=== PATIENT | female | born 1985 | race Hispanic/Latino ===

== ENCOUNTER → 2023-01-14 | Outpatient (CLI) | payer OTHER | LOC: US 11:32 | PROVIDERS: ATTEND Family Medicine | DX: E04.1 Nontoxic single thyroid nodule (principal) | CPT/HCPCS: 10005; 88172; 88173; 88300; 88305 ==

== ENCOUNTER 2023-04-19 08:48 | Observation (INO) | payer OTHER ==
[2023-04-15 15:28] LABS: BASOPHILS # (AUTO) 0.1 (0.0-0.1); BASOPHILS % 0.7 % (0.0-1.0); EOSINOPHILS # (AUTO) 0.4 (0.0-0.4); EOSINOPHILS % 6.3 % (0.0-6.0); HEMATOCRIT 37.5 % (34.2-44.1); HEMOGLOBIN 12.2 g/dL (12.0-16.0); LYMPHOCYTES # (AUTO) 2.3 (1.0-3.2); LYMPHOCYTES % 33.6 % (18.0-39.1); MEAN CORPUSCULAR HEMOGLOBIN 30.3 pg (28-32); MEAN CORPUSCULAR HGB CONC 32.5 g/dL (31-35); MEAN CORPUSCULAR VOLUME 93.3 fL (81-99); MONOCYTES # (AUTO) 0.5 (0.2-0.8); MONOCYTES % 7.2 % (4.4-11.3); NEUTROPHILS # (AUTO) 3.5 (2.1-6.9); NEUTROPHILS % 52.1 % (38.7-80.0); PLATELET COUNT 302 x10e3/uL (140-360); RED BLOOD COUNT 4.02 x10e6/uL (3.6-5.1); RED CELL DISTRIBUTION WIDTH 15.9 % (11.7-14.4)
[2023-04-15 16:00] LABS: ALBUMIN 3.9 g/dL (3.5-5.0); ALBUMIN/GLOBULIN RATIO 1.2 (0.8-2.0); ANION GAP 12.1 mmol/L (8-16); CALCIUM 8.6 mg/dL (8.4-10.2); CREATININE, SERUM 0.67 mg/dL (0.57-1.11); POTASSIUM 4.1 mmol/L (3.5-5.1)
[~2023-04-19] VITALS: Ht 160 cm; Wt 65.8 kg
[~2023-04-19 08:48] MED LIST: FEROSUL325 MG PO; LACTATED RINGER'S 1,000 ML ONE
[2023-04-19] MEDS ORDERED: SCOPOLAMINE 1 MG PATCH ONE (09:22)
[2023-04-19] MEDS ORDERED: PROPOFOL IV EMULSION 50 ML IV ONE (09:54)
[2023-04-19] MEDS ORDERED: SUCCINYLCHOLINE CHLORIDE 20 MG/ML 10ML VIAL ONE (09:54)
[2023-04-19] MEDS ORDERED: MEPERIDINE HCL INJ 25 MG/ML VIAL ONE (12:22)
[2023-04-19] MEDS ORDERED: ONDANSETRON HCL INJ 2MG/ML 2ML 2 MG/ML VIAL IV PRN (12:30)
[2023-04-19] MEDS ORDERED: HYDROCODONE/APAP 7.5MG-325MG 1 EA TAB PO PRN (12:30)
[2023-04-19] MEDS ORDERED: ACETAMINOPHEN 1000 MG/100 ML IV PRN (12:30)
[2023-04-19] MEDS ORDERED: FENTANYL CITRATE/PF 100MCG/2 ML INJ ONE ×2 (12:47→12:56)
[2023-04-19] MEDS ORDERED: DEXAMETHASONE SOD PHOS INJ 4 MG/ML SDV ONE (12:52)
[2023-04-19] MEDS ORDERED: PROPOFOL IV EMULSION 10 MG/ML 20 ML VIAL ONE (12:52)
[2023-04-19] MEDS ORDERED: NEOSTIGMINE 1 MG/ML 10ML VIAL ONE (12:52)
[2023-04-19] MEDS ORDERED: LIDOCAINE HCL 2% LOCAL INJ 5 ML SDV VIAL INJ ONE (12:52)
[2023-04-19] MEDS ORDERED: ONDANSETRON HCL INJ 2MG/ML 2ML 2 MG/ML VIAL ONE (12:52)
[2023-04-19] MEDS ORDERED: GLYCOPYRROLATE INJ 0.2 MG/ML VIAL ONE (12:52)
[2023-04-19] MEDS ORDERED: ROCURONIUM BROMIDE 10 MG/ML 5ML VIAL IV ONE (12:52)
[2023-04-19] MEDS ORDERED: POVIDONE IODINE 0.05% 0.05 % ML PO ONE (12:52)
[2023-04-19] MEDS ORDERED: SEVOFLURANE INHAL SOLN 250 ML PEN BTL ONE (12:52)
[2023-04-19] MEDS ORDERED: MIDAZOLAM HCL 2 MG/2 ML VIAL ONE (12:56)
[2023-04-19] MEDS: SODIUM CHLORIDE 0.9% 1000ML 1,000 ML IV SCH (13:56)
[2023-04-19 14:01] VITALS: BP 130/81; PULSE 58; RESP 14; TEMP 97.8; O2SAT 99
[2023-04-19 14:07] VITALS: BP 130/81; PULSE 58; RESP 14; TEMP 97.8; O2SAT 99
[2023-04-19 14:14] VITALS: BP 130/81; RESP 14; TEMP 97.8; O2SAT 99
[2023-04-19] MEDS: HYDROMORPHONE 1MG/1ML INJ IV PRN ×2 (14:54→22:09)
[2023-04-19 17:00] VITALS: BP 119/78; PULSE 76; RESP 19; TEMP 98.4; O2SAT 97
[2023-04-19 20:43] VITALS: BP 127/83; PULSE 96; RESP 17; TEMP 98.5; O2SAT 97
[2023-04-19 21:50] VITALS: BP 127/83; PULSE 96; RESP 17; TEMP 98.5; O2SAT 97
[2023-04-20 00:42] VITALS: BP 103/65; PULSE 79; RESP 17; TEMP 98.4; O2SAT 98
[2023-04-20] MEDS: SODIUM CHLORIDE 0.9% 1000ML 1,000 ML IV SCH ×2 (01:55→09:04)
[2023-04-20] MEDS: HYDROMORPHONE 1MG/1ML INJ IV PRN ×2 (04:34→09:04)
[2023-04-20 04:57] VITALS: BP 110/74; PULSE 82; RESP 17; TEMP 98.5; O2SAT 99
[2023-04-20 06:04] LABS: BASOPHILS % 0.2 % (0.0-1.0); EOSINOPHILS % 0.1 % (0.0-6.0); HEMATOCRIT 35.1 % (34.2-44.1); HEMOGLOBIN 11.5 g/dL (12.0-16.0); LYMPHOCYTES # (AUTO) 1.8 (1.0-3.2); MEAN CORPUSCULAR HEMOGLOBIN 30.4 pg (28-32); MEAN CORPUSCULAR HGB CONC 32.8 g/dL (31-35); MEAN CORPUSCULAR VOLUME 92.9 fL (81-99); MONOCYTES % 8.6 % (4.4-11.3); NEUTROPHILS # (AUTO) 8.9 (2.1-6.9); NEUTROPHILS % 75.8 % (38.7-80.0); PLATELET COUNT 343 x10e3/uL (140-360); RED BLOOD COUNT 3.78 x10e6/uL (3.6-5.1); RED CELL DISTRIBUTION WIDTH 15.1 % (11.7-14.4)
[2023-04-20 06:34] LABS: ANION GAP 12.7 mmol/L (8-16); BLOOD UREA NITROGEN < 5 mg/dL (7-26); BUN/CREATININE RATIO 8 (6-25); CALCIUM 8.3 mg/dL (8.4-10.2); CARBON DIOXIDE 23 mmol/L (22-29); CHLORIDE 105 mmol/L (98-107); CREATININE, SERUM 0.64 mg/dL (0.57-1.11); GLUCOSE 93 mg/dL (74-118); POTASSIUM 3.7 mmol/L (3.5-5.1); SODIUM 137 mmol/L (136-145)
[2023-04-20 08:05] VITALS: BP 101/67; PULSE 63; RESP 18; TEMP 98.2; O2SAT 95
[2023-04-20 08:13] VITALS: BP 141/78; PULSE 85; RESP 20; TEMP 98.2; O2SAT 97
[2023-04-20 08:14] VITALS: BP 101/67; PULSE 63; RESP 18; TEMP 98.2; O2SAT 95
[2023-04-20 12:17] VITALS: BP 106/79; PULSE 71; RESP 18; TEMP 98.5; O2SAT 100
== END 2023-04-20 13:43 | disposition home or self-care (01) ==
LOC: OR 08:48 → PACU V 12:43 → MED/SURG2 13:40
PROVIDERS: ADMIT Surgery; ATTEND Surgery
DX: C73 Malignant neoplasm of thyroid gland (principal); F41.9 Anxiety disorder, unspecified; Z01.812 Encounter for preprocedural laboratory examination; Z20.822 Contact with and (suspected) exposure to COVID-19
CPT/HCPCS: 0223U; 36415 ×2; 60220; 80048; 80053; 81025; 85025 ×2; 88307; G0378 ×2; J0330; J1100; J1170 ×2; J2001; J2175; J2405; J2704 ×2; J2710; J3010; J7030 ×2; J7121; 88304; J2250